=== PATIENT | female | born 1960 | race Caucasian/White ===

== ENCOUNTER → 2019-12-15 11:07 | Outpatient (CLI) | payer OTHER, SELFPAY ==
[2019-12-19 06:02] LABS: Anti-Histone Abs 0.5; Anti-Nuclear Antibody Test POSITIVE
[2019-12-19 06:03] LABS: Anti-dsDNA Ab <1.0; RNP Ab <0.2; Smith Ab <0.2
== END ==
PROVIDERS: PCP Family Medicine; Referring Provider Dermatology Pediatric Dermatology; Visit Provider Dermatology Pediatric Dermatology
DX: L93.1 Subacute cutaneous lupus erythematosus (principal); D48.5 Neoplasm of uncertain behavior of skin
CPT/HCPCS: 36415; 86038; 86225; 86226; 86235